=== PATIENT | male | born 1955 | race Two or more races ===

== ENCOUNTER → 2024-06-19 | Outpatient (CLI) | payer OTHER, SELFPAY ==
--- NOTE | 2024-06-19 12:53 | XR_ITS ---
Examination: Knee, right , 3 views Technique: Knee AP, lateral, oblique 3 views Date and time of exam: June 19, 2024 1403 hours INDICATIONS: Patient fell 2 weeks ago with injury to the knee, knee pain. FINDINGS: Moderate osteopenia Moderate narrowing medial joint space No acute fracture No dislocation IMPRESSION: No acute fracture
--- NOTE | 2024-06-19 14:00 | XR_ITS ---
Examination: Ultrasound soft tissue extremity right knee TECHNIQUE: Grayscale sonographic images soft tissue right knee Exam date and time: June 19, 2024 1303 hours INDICATIONS: Palpable lump posterior knee with pain beginning one month ago FINDINGS: Popliteal cyst at the area concern, 2.4 x 1.7 x 2.4 cm IMPRESSION: Popliteal cyst right knee seen with internal derangement of the knee Consider MRI knee without contrast follow-up
== END | disposition home or self-care (01) ==
PROVIDERS: PCP Family Medicine; Referring Provider Family Medicine; Visit Provider Family Medicine
DX: M71.21 Synovial cyst of popliteal space [Baker], right knee (principal); M23.91 Unspecified internal derangement of right knee; S89.91XA Unspecified injury of right lower leg, initial encounter; W19.XXXA Unspecified fall, initial encounter
CPT/HCPCS: 73562; 76882

== ENCOUNTER 2024-08-11 13:15 | Outpatient (AMB) | payer OTHER, SELFPAY ==
[2024-08-11 13:22] VITALS: BP 120/80; PULSE 82; RESP 18; TEMP 36.7; O2SAT 97; BMI 26.3
--- NOTE | 2024-08-11 13:22 | PD.ORTHCLVIS ---
Vital signs 08/11/24 13:22 Height 1.73 m Height Method Measured Weight 78.5 kg Weight Measurement Method Standing Scale BMI 26.3 BP 120/80 Blood Pressure Source Automatic Cuff Blood Pressure Location Right Upper Arm Position Sitting Respiration 18 Pulse 82 Pulse Source Monitor Temp 98.0 F Temp Source Temporal Artery Scan Pulse Oximetry (%) 97 Oxygen Delivery Method Room Air Med/Allergies Allergies & Medications Allergies No Known Drug Allergies Allergy (Verified 08/11/24 13:31) Medication Reconciliation meloxicam 7.5 mg tablet 7.5 mg PO QDAY #45 tabs 08/11/24 [Rx] Exam Exam Breathing is nonlabored. Patient has a normal mood and affect. Bilateral extremities were evaluated and demonstrates sensation intact to light touch. Palpable pedal pulses are present. No significant edema is present. Bilateral hips were examined. The patient has no pain with log roll of the hips. Internal rotation to 30 degrees and external rotation to 30 degrees is painless. Negative FADIR. Left knee was examined today. The left knee is in reasonable alignment. Range of motion from 0-120 degrees. Knee is stable to varus and valgus as well as AP translation with <5mm. Patient has a negative McMurrays. There is no pain with patellofemoral compression and no crepitus noted. The knee is nontender to palpation. The right knee was also examined. The right knee is in varus alignment. Range of motion from 0-115 degrees. Knee is stable to varus and valgus as well as AP translation with <5mm. Patient has a negative McMurrays. There is no pain with patellofemoral compression and no crepitus noted. The knee is tender to palpation medially. Right shoulder was also evaluated. He has a positive Empty can test. Assessment and Plan Problem List (1) Arthritis of knee, right: Status: Acute Plan: Patient is a pleasant 68-year-old male with right knee pain and right knee arthritis. We discussed nonoperative and operative options. I would like to get weightbearing x-rays and we will start with meloxicam. He will do an injection should the pain worsen. We will get knee and shoulder films. Advanced Care Planning Discussion Advance care planning discussed with:: patient Office Procedures GNS Level of Care Nursing/Assessment Patient Status: Initial/New Patient Nursing Assessment/Reassesment: Medication Reconciliation, Update PMH in EMR and Vital Signs Coordination of Care: Complex Care and Chronic Disease 1-5, Education Complex Pt/Fam, Consent,records obtained, informed consent, Lab and Imaging orders, Results/Orders obtained and Staff clarify orders New Patient Charge New Patient Point Assignment: 1109 New Patient Point Charge: DENTAL HYGIENIST Level 3 (4795-2503) MA Intake Visit Data Collection New Patient or Established: Established Patient (seen at [facility] within 3 years) Reason for Visit:: KNEE PAIN Seen by Clinical Staff ONLY (RN/MA): No Verbal consent obtained for Telemed visit?: No Locker Room Attendant Required: No PCP or OBGYN visit in last 3 months: Yes Hx Now: No Do You Feel Safe at Home: Yes Authorities Contacted: N/A Questionairres Past Medical History Past Medical History Have you ever been diagnosed with any of the following: Respiratory Problems Smoking: No Smoking Cessation Counseling: No Smoking Exposure: No Tobacco Use: No Subjective Visit Visit for: new patient and knee Immunization / Flu Flu Vaccine in the Last 12 Months: No Flu Vaccine Exclusion Criteria: No Exclusion Criteria History of Present Illness Chief complaint: Right knee and shoulder pain Date of injury / onset of symptoms: 2 MONTHS Willard? is a pleasant 68-year-old male with 2 months of right knee pain after a fall. He also reports the right shoulder hurts. He has difficulty abducting his shoulder and has difficulty with overhead activities. He has not had any injections or any anti-inflammatories. Personal History Occupation: RETIRED [employer] PMH: BMI BMI Counceling provided: Yes Pain Pain level (0-10): 5 Pain duration: ONLY WITH BENDING KNEE Pain location: inside (medial), outside (lateral) and anterior Pain quality: sharp, dull and aching Pain timing: increases with activity Associated signs & symptoms: numbness, weakness and stiffness Ambulatory data Ambulatory device: none Treatments Improvement with previous injections: No Improvement with PT: No Improvement with NSAIDS: no Review of Systems Review of Systems: All systems negative unless otherwise noted in HPI.
--- NOTE | 2024-08-11 13:36 | XR_ITS ---
Examination: Bilateral AP knees single view Standing PA flexion, standing lateral, axial right knee 3 views TECHNIQUE: Bilateral AP knees standing single view Standing PA knee flexion, standing lateral knee, axial right knee 3 views total 4 views Exam date and time: August 11, 2024 1342 hours INDICATIONS: Patient fell 2 months ago with injury of the right knee, right knee pain. FINDINGS: Moderate osteopenia Right knee moderate tricompartment osteoarthritis No fracture Moderate narrowing medial joint space left knee IMPRESSION: No fracture Right knee moderate tricompartment osteoarthritis
--- NOTE | 2024-08-11 13:36 | XR_ITS ---
Examination: Shoulder,right, 3 views Technique: Shoulder AP internal rotation, AP external rotation, Y view shoulder, 3 views Exam date and time :August 11, 2024 1342 hours INDICATIONS: Patient fell 2 months ago with injury to the right shoulder, right shoulder pain. FINDINGS: Moderate narrowing glenohumeral joint No shoulder fracture or dislocation No acute joint separation IMPRESSION: No shoulder fracture or dislocation
== END 2024-08-11 13:43 | disposition home or self-care (01) ==
PROVIDERS: PCP Family Medicine; Referring Provider Family Medicine; Supervising Provider Orthopaedic Surgery Adult Reconstructive Orthopaedic Surgery; Visit Provider Orthopaedic Surgery Adult Reconstructive Orthopaedic Surgery
DX: M17.11 Unilateral primary osteoarthritis, right knee (principal); M25.561 Pain in right knee; S49.91XD Unspecified injury of right shoulder and upper arm, subsequent encounter; W19.XXXD Unspecified fall, subsequent encounter
CPT/HCPCS: 73030; 73564; 99203; G0463

== ENCOUNTER 2024-09-08 14:21 | Outpatient (AMB) | payer OTHER, SELFPAY ==
--- NOTE | 2024-09-08 14:40 | ORTHONT_ITS ---
Vital signs 09/08/24 14:41 Height 1.73 m Height Method Stated Weight 76.827 kg Weight Measurement Method Standing Scale BMI 25.7 BP 143/82 H Blood Pressure Source Automatic Cuff Blood Pressure Location Right Upper Arm Position Sitting Respiration 18 Pulse 73 Pulse Source Monitor Temp 98.3 F Temp Source Temporal Artery Scan Pulse Oximetry (%) 96 Oxygen Delivery Method Room Air Med/Allergies Allergies & Medications Allergies No Known Drug Allergies Allergy (Verified 09/08/24 14:41) Medication Reconciliation No Known Home Medications 09/08/24 [History Confirmed 09/08/24] Exam Exam Breathing is nonlabored. Patient has a normal mood and affect. Bilateral extremities were evaluated and demonstrates sensation intact to light touch. Palpable pedal pulses are present. No significant edema is present. Bilateral hips were examined. The patient has no pain with log roll of the hips. Internal rotation to 30 degrees and external rotation to 30 degrees is painless. Negative FADIR. Left knee was examined today. The left knee is in reasonable alignment. Range of motion from 0-120 degrees. Knee is stable to varus and valgus as well as AP translation with <5mm. Patient has a negative McMurrays. There is no pain with patellofemoral compression and no crepitus noted. The knee is nontender to palpation. The right knee was also examined. The right knee is in varus alignment. Range of motion from 0-115 degrees. Knee is stable to varus and valgus as well as AP translation with <5mm. Patient has a negative McMurrays. There is no pain with patellofemoral compression and no crepitus noted. The knee is tender to palpation medially. Right shoulder was also evaluated. He has a positive Empty can test. Right shoulder x-rays demonstrate minimal arthritis. Right knee weightbearing x-rays demonstrate mild arthritis as well Assessment and Plan Problem List (1) Rotator cuff tear: Status: Acute Plan: Patient is a 69-year-old male with weak shoulder abduction. He was originally seeing me for his knee but the pain has largely resolved. He has weakness with overhead activities and we are thus sending him to a shoulder surgeon as he is highly likely to have a rotator cuff tear. I told him that I can order an MRI but We can also just send him to a shoulder specialist and go from there Advanced Care Planning Discussion Advance care planning discussed with:: patient Office Procedures GNS Level of Care Nursing/Assessment Patient Status: Established Patient Nursing Assessment/Reassesment: Medication Reconciliation, Update PMH in EMR and Vital Signs Coordination of Care: Complex Care and Chronic Disease 1-5, Education Complex Pt/Fam, Consent,records obtained, informed consent, Results/Orders obtained and Staff clarify orders Established Patient Charge Established Patient Point Assignment: 95 Established Patient Point Charge: EP Level 3 (80-115) MA Intake Visit Data Collection New Patient or Established: Established Patient (seen at [facility] within 3 years) Reason for Visit:: XRAYS FOLLOW UP Seen by Clinical Staff ONLY (RN/MA): No Verbal consent obtained for Telemed visit?: No Water Hauler Required: No PCP or OBGYN visit in last 3 months: Yes Hx Now: No Do You Feel Safe at Home: Yes Authorities Contacted: N/A Questionairres Past Medical History Past Medical History Have you ever been diagnosed with any of the following: Respiratory Problems Smoking: No Smoking Cessation Counseling: No Smoking Exposure: No Tobacco Use: No Subjective Visit Visit for: follow up visit and x-rays Immunization / Flu Flu Vaccine in the Last 12 Months: No Flu Vaccine Exclusion Criteria: No Exclusion Criteria History of Present Illness Chief complaint: XRAY FOLLOW UP Date of injury / onset of symptoms: 2 MONTHS Willard? is a pleasant 68-year-old male with 2 months of right knee pain after a fall. He also reports the right shoulder hurts. He has difficulty abducting his shoulder and has difficulty with overhead activities. He has not had any injections or any anti-inflammatories. He reports difficulty with overhead activity and lifting his shoulder. We discussed that we will send him to a shoulder surgeon as I think he has a rotator cuff tear on examination. Personal History Occupation: RETIRED [employer] PMH: BMI BMI Counceling provided: Yes Pain Pain level (0-10): 0 Pain duration: ONLY WITH BENDING KNEE Pain location: inside (medial), outside (lateral) and anterior Pain quality: sharp, dull and aching Pain timing: increases with activity Associated signs & symptoms: none Ambulatory data Ambulatory device: none Treatments Improvement with previous injections: No Improvement with PT: No Improvement with NSAIDS: no Review of Systems Review of Systems: All systems negative unless otherwise noted in HPI.
[2024-09-08 14:41] VITALS: BP 143/82; PULSE 73; RESP 18; TEMP 36.8; O2SAT 96; BMI 25.7
== END 2024-09-08 14:53 | disposition home or self-care (01) ==
LOC: HODSRG 14:21
PROVIDERS: PCP Family Medicine; Referring Provider Family Medicine; Supervising Provider Orthopaedic Surgery Adult Reconstructive Orthopaedic Surgery; Visit Provider Orthopaedic Surgery Adult Reconstructive Orthopaedic Surgery
DX: M25.511 Pain in right shoulder (principal); M19.011 Primary osteoarthritis, right shoulder; S89.91XD Unspecified injury of right lower leg, subsequent encounter; W19.XXXD Unspecified fall, subsequent encounter
CPT/HCPCS: 99213; G0463

== ENCOUNTER 2024-10-16 09:46 | Emergency (ER) | payer OTHER, SELFPAY ==
[2024-10-16 09:47] VITALS: BMI 25.8
[2024-10-16 09:54] VITALS: BP 173/66; PULSE 67; RESP 17; TEMP 36.7; O2SAT 98
--- NOTE | 2024-10-16 10:02 | XR_ITS ---
Examination: CT abdomen with intravenous contrast CT pelvis with intravenous contrast 2-D coronal reconstructions 2-D sagittal reconstructions Date and time of exam:October 16, 2024 1224 hours INDICATIONS: Right abdominal pain and dysuria nausea today. CTDI: vol (mGy) 7.46 DLP: (mGycm) 467 Technique: Multiple axial sections of the abdomen and pelvis have been obtained. 64 slice high-resolution scanner used. 3 mm axial sections have been obtained, post intravenous injection 60 cc [id number] 2-D sagittal, coronal reconstructions obtained. Low dose protocols were performed. One or more of the following dose reduction techniques were used; automated exposure control, adjustment of the mA and/or KV according to patient size, use of iterative reconstruction technique. Findings: 8mm noncalcified pulmonary nodule right lower lobe No focal liver or splenic lesions Contracted gallbladder No pancreatic mass or peripancreatic edema Normal adrenal glands Mild right hydronephrosis, 2 mm distal right ureterovesical junction calculus Normal appendix No bowel obstruction No diverticulitis Colonic diverticulosis is present Prostate calcifications, transverse prostate dimension 5.3 cm Contracted urinary bladder Fat-containing inguinal hernias Mild lumbar spondylosis IMPRESSION: Mild right hydronephrosis secondary to 2 mm distal right ureterovesical junction calculus Normal appendix
--- NOTE | 2024-10-16 10:04 | PD.EDRME ---
Rapid Medical Screening Exam RME Arrival date/time: 10/16/24 09:46 69-year-old male with no known medical history presents to the emergency room with a chief complaint of right lower quadrant abdominal pain and tenderness x 1 day I have greeted and performed a focused initial assessment of this patient. A comprehensive ED assessment and evaluation of the patient, analysis of all test results, and completion of the medical decision making process will be conducted by additional ED providers. Chief Complaint: Abdominal Pain Vital signs: Vital Signs Temperature 98.1 F 10/16/24 09:54 Pulse Rate 67 10/16/24 09:54 Respiratory Rate 17 10/16/24 09:54 Blood Pressure 173/66 H 10/16/24 09:54 Pulse Oximetry (%) 98 10/16/24 09:54 Oxygen Delivery Method Room Air 10/16/24 09:54 Vital signs reviewed by provider: Yes
[2024-10-16] MEDS: HYDROcodone/APAP 5/325 TABLET 1 TAB PO (10:31)
[2024-10-16 10:34] LABS: Collection Type, Urine Clean Catch
[2024-10-16 10:41] LABS: Basophils # (Auto) 0.1 Thou/mm3 (0.0-0.2); Basophils % (Auto) 1 % (0-2.5); Eosinophils # (Auto) 0.3 Thou/mm3 (0.0-0.5); Eosinophils % (Auto) 2 % (0-10); Hematocrit 41.4 % (41.0-53.0); Immature Granulocytes % (Auto) 1 % (0-0); Immature Granulocytes Auto 0.14 Thou/mm3 (0.00-0.00); Lymphocytes # (Auto) 3.9 Thou/mm3 (1.0-4.8); Lymphocytes % (Auto) 28 % (10-50); Mean Corpuscular HGB Conc 36.2 g/dl (31.0-37.0); Mean Corpuscular Hemoglobin 30.5 pg (25.0-35.0); Mean Corpuscular Volume 84 fL (80-100); Monocytes # (Auto) 0.9 Thou/mm3 (0.0-0.8); Monocytes % (Auto) 6 % (0-12); Neutrophils # (Auto) 8.5 Thou/mm3 (1.8-7.7); Neutrophils % (Auto) 62 % (37-80); Nucleated Red Blood Cell % 0 /100 WBC (0); Platelet Count 285 Thou/mm3 (140-440); Red Blood Count 4.92 Miln/mm3 (4.50-5.90); White Blood Count 13.9 Thou/mm3 (3.8-10.6)
[2024-10-16 10:50] LABS: Bilirubin,Urine Negative (Negative); Blood,Urine 1+ (Negative); Clarity,Urine Clear (Clear/Hazy); Color,Urine Yellow (Lt Yel-Yel); Glucose, Urine Negative (Negative); Ketones,Urine Negative (Negative); Leukocyte Esterase,Urine Positive (Negative); Nitrite,Urine Negative (Negative); Protein,Urine Trace (Neg - Trace); RBC,Urine 12 /hpf (0-3); Specific Gravity,Urine 1.032 (1.001-1.035); Squamous Epithelial Cell,Urine < 1 /hpf (0-5); WBC,Urine 4 /hpf (0-5)
[2024-10-16 11:00] LABS: Alanine Aminotransferase 28 U/L (10-49); Albumin, Serum 4.4 gm/dL (3.4-4.8); Albumin/Globulin Ratio 1.8 (1.2-2.2); Alkaline Phosphatase 85 U/L (46-116); Anion Gap 15 (7-16); Aspartate Amino Transferase 20 U/L (0-34); BUN/Creatinine Ratio 26 Ratio (12-20); Bilirubin,Total 0.8 mg/dL (0.3-1.2); Blood Urea Nitrogen 26 mg/dL (9-23); Carbon Dioxide 23.5 mMol/L (20.0-31.0); Chloride 104 mMol/L (98-107); Estimated Creatinine Clearance 68.4 mL/min (>60); Globulin 2.4 gm/dL (2.3-3.5); Glucose 143 mg/dL (74-106); Lipase 39 U/L (12-53); Osmolality,Calculated 289 (275-295); Potassium 3.8 mMol/L (3.4-5.1); Sodium 142 mMol/L (136-145); Total Protein 6.8 gm/dL (5.7-8.2); eGFR > 60 See Note
--- NOTE | 2024-10-16 11:15 | PC.NURSE ---
PT CALLED FOR CT SCREENING TO BE COMPLETED; NO RESPONSE X1
--- NOTE | 2024-10-16 11:45 | PC.NURSE ---
PT CALLED FOR CT SCREENING TO BE COMPLETED; NO RESPONSE X2
[2024-10-16 16:00] VITALS: BP 132/78; PULSE 68; RESP 18; TEMP 36.7; O2SAT 99
[2024-10-16] MEDS: cefTRIAXone 1,000 MG, LIDOCAINE 1% 20 ML 2.1 ML IM (16:03)
--- NOTE | 2024-11-06 13:17 | EDNOTE_ITS ---
ED General RME/HPI General Chief complaint: Abdominal Pain Stated complaint: RLQ PAIN Time Seen by Provider: 10/16/24 15:53 Source: patient Arrival date/time: 10/16/24 09:46 69-year-old male with no known medical history presents to the emergency room with a chief complaint of right lower quadrant abdominal pain and tenderness x 1 day Mode of arrival: ambulatory Limitations: no limitations RME / HPI RME / HPI narrative: 10/16/24 09:46 69-year-old male with no known medical history presents to the emergency room with a chief complaint of right lower quadrant abdominal pain and tenderness x 1 day I have greeted and performed a focused initial assessment of this patient. A comprehensive ED assessment and evaluation of the patient, analysis of all test results, and completion of the medical decision making process will be conducted by additional ED providers. Related Data Previous Rx's ?Medication ?Instructions ?Recorded hydrocodone 5 mg-acetaminophen 325 1 tab PO BID PRN pa in #10 tabs 10/16/24 mg tablet tamsulosin 0.4 mg capsule (Flomax) 0.4 mg PO QDAY #30 caps 10/16/24 Allergies Allergy/AdvReac Type Severity Reaction Status Date / Time No Known Drug Allergies Allergy Verified 10/16/24 09:49 Review of Systems Review of Systems Systems Reviewed: All systems reviewed, normal except as documented Constitutional Constitutional: Reports system reviewed and no additional complaints, except as documented, Denies fatigue, Denies fever(s), Denies headache(s) and Denies weakness Eyes Eyes: Reports system reviewed and no additional complaints, except as documented, Denies blurry vision and Denies change in vision ENT Ears, Nose, Mouth, and Throat: Reports system reviewed and no additional complaints, except as documented, Denies otalgia, Denies headache(s), Denies nasal congestion, Denies throat swelling and Denies vertigo Cardiovascular Cardiovascular: Reports system reviewed and no additional complaints, except as documented, Denies chest pain, Denies dyspnea and Denies dyspnea on exertion Respiratory Respiratory: Reports system reviewed and no additional complaints, except as documented, Denies chest congestion, Denies cough, Denies dyspnea, Denies dyspnea on exertion and Denies wheezing Gastrointestinal Gastrointestinal: Reports system reviewed and no additional complaints, except as documented, Reports abdominal pain, Reports cramping, Reports nausea and Denies vomiting Genitourinary Genitourinary: Reports system reviewed and no additional complaints, except as documented, Denies dysuria and Denies hematuria Musculoskeletal Musculoskeletal: Reports system reviewed and no additional complaints, except as documented and Denies back pain Integumentary/Breasts Skin/Breast: Reports system reviewed and no additional complaints, except as documented and Denies wounds Neurologic Neurologic: Reports system reviewed and no additional complaints, except as documented, Denies confusion, Denies headache(s), Denies lack of coordination, Denies vertigo and Denies weakness Psychiatric Psychiatric: Reports system reviewed and no additional complaints, except as documented, Denies anxiety, Denies confusion, Denies depression, Denies paranoia, Denies suicidal ideation and Denies tactile hallucinations Endocrine Endocrine: Reports system reviewed and no additional complaints, except as documented and Denies fatigue Hematologic/Lymphatic Hematologic/Lymphatic: Reports system reviewed and no additional complaints, except as documented and Denies lymphadenopathy Allergic/Immunologic Allergic/Immunologic: Reports system reviewed and no additional complaints, except as documented, Denies throat swelling, Denies urticaria and Denies wheezing Past Medical History Past Medical History CARDIAC: Negative Cardiac Disorders RESPIRATORY: Negative Asthma, Smoking, Smoking Cessation Counseling, Smoking Exposure or Tobacco Use GENITOURINARY: Negative Renal Disease ENDOCRINE: Negative Diabetes Mellitus Type 2 HEMATOLOGIC: Negative Sickle Cell Disease Social History SMOKING STATUS: Never smoker ED Exam General Limitations: Present no limitations General appearance: Present alert and in no apparent distress Head Head exam: Present atraumatic Eye Eye exam: Present normal appearance, PERRL and EOMI ENT ENT exam: Present normal exam, normal oropharynx and mucous membranes moist Neck Neck exam: Present normal inspection, full ROM and trachea midline Chest Chest inspection: Present normal inspection and symmetric chest wall rise Respiratory Respiratory exam: Present normal lung sounds bilaterally Cardiovascular Cardiovascular exam: Present regular rate, normal rhythm and normal heart sounds Abdominal Exam Abdominal exam: Present soft, tenderness and normal bowel sounds Abdominal tenderness: Present RLQ and mild Extremities Exam Extremities exam: Present normal inspection and full ROM Back Exam Back exam: Present normal inspection and full ROM Neurological Exam Neurological exam: Present alert, oriented X3 and CN II-XII intact Psychiatric Psychiatric exam: Present normal affect and normal mood Skin Skin exam: Present warm, dry, intact and normal color Course Quality Measures none Orders Category Date Time Status CT Screening NOW Care 10/16/24 10:[address] abdomen pelvis w con Stat Exams 10/16/24 10:02 Completed CBC Stat Lab 10/16/24 10:13 Completed CMP [Comprehensive Metabolic Panel] Stat Lab 10/16/24 10:13 Completed Lipase Stat Lab 10/16/24 10:13 Completed UA [Urinalysis] Stat Lab 10/16/24 10:11 Completed Urine Culture Stat Lab 10/16/24 10:11 Completed HYDROcodone*/APAP 5/325 [[place] 5/325] Med 10/16/24 10:02 Discontinued 1 tab PO X1 ONE cefTRIAXone [Rocephin] 1,000 mg Med 10/16/24 15:53 Discontinued Lidocaine 1% 20 ml [Xylocaine 1% 20 ML] 2.1 ml IM X1 Vital Signs Vital signs: Vital Signs Temperature 98.1 F 10/16/24 09:54 Pulse Rate 67 10/16/24 09:54 Respiratory Rate 17 10/16/24 09:54 Blood Pressure 173/66 H 10/16/24 09:54 Pulse Oximetry (%) 98 10/16/24 09:54 Oxygen Delivery Method Room Air 10/16/24 09:54 Discharge Plan Plan Patient Disposition: HOME (Self Care) Discharge Disposition comment: Stable Prescriptions/Referrals Prescriptions/Med Rec: New hydrocodone-acetaminophen 5-325 mg tablet 1 tab PO BID MDD 10mg PRN (Reason: pain) Qty: 10 0RF tamsulosin [Flomax] 0.4 mg capsule 0.4 mg PO QDAY Qty: 30 0RF Referrals: No Primary/Family,Physician [Primary Care Provider] - In 1 week Problem List Clinical Impression: Kidney stone Patient/Caregiver Discharge Instructions Education Materials: ED Kidney Stone w/ Colic Additional Instructions: Please follow-up with your primary care provider in the next 24 to 48 hours You have a kidney stone in your ureter that you are currently passing. Pain medication was sent to your pharmacy please pick it up and take it as indicated For any evidence of worsening signs or symptoms return to the emergency room immediately Print Language: Slovak Stand Alone Forms: Ella Award Info., Patient Portal Info Letter PA/CARPENTER HELPER Supervising Physician PA/CARPENTER HELPER Supervising Physician: Dr. Sohan OLIVAS Narrative MDM hospital course: 69-year-old male with no known medical history presents to the emergency room with a chief complaint of right lower quadrant abdominal pain and tenderness x 1 day Patient is hemodynamically stable and in no apparent distress. The patient is afebrile not tachycardic and not tachypneic Physical examination shows some 6 out of 10 lower right lower quadrant abdominal tenderness with palpation. A CT of the abdomen and pelvis was completed and was negative for any acute appendicitis. CBC CMP are within normal limits CT of the abdomen and pelvis did find a 2 mm stone in the ureter causing some mild hydronephrosis. The patient does not have a urinary tract infection and no CVA tenderness. Patient was discharged and educated to follow-up with primary care provider in the next 24 to 48 hours and return to the emergency room for any evidence of worsening signs or symptoms Clinical Information Provided by patient Medical Records Reviewed None and [facility] Meds/Rx Considered, not Ordered None Labs/Rad/Tests considered, not Ordered None Chronic Illness/Social Conditions which may negatively complicate care or outcome(s)-explain: None or not applicable EKG EKG not done Lab Interpretation Labs: interpreted by [facility] Imaging interpretation: interpreted by [facility] Radiology reports / interpretation(s): Findings: 8mm noncalcified pulmonary nodule right lower lobe No focal liver or splenic lesions Contracted gallbladder No pancreatic mass or peripancreatic edema Normal adrenal glands Mild right hydronephrosis, 2 mm distal right ureterovesical junction calculus Normal appendix No bowel obstruction No diverticulitis Colonic diverticulosis is present Prostate calcifications, transverse prostate dimension 5.3 cm Contracted urinary bladder Fat-containing inguinal hernias Mild lumbar spondylosis IMPRESSION: Mild right hydronephrosis secondary to 2 mm distal right ureterovesical junction calculus Normal appendix Medication Administration(s) Medication Administration History Discontinued Medications Hydrocodone Bitart/Acetaminophen (Hydrocodone/Apap 5/325 Tablet) 1 tab PO X1 ONE Stop: 10/16/24 10:03 Last Admin: 10/16/24 10:31 Dose: 1 tab Documented By: CARLITOS Ceftriaxone Sodium 1,000 mg/ (Lidocaine HCl 2.1 ml) 0 mg IM X1 ONE Stop: 10/16/24 15:54 Last Admin: 10/16/24 16:03 Dose: 1,000 mg Documented By: CARLITOS Diagnosis Differential diagnosis: Acute appendicitis/renal stone/gastroenteritis Differential dx and/or dx ruled out: Acute appendicitis/gastroenteritis Most likely dx, and/or detailed dx discussion: Renal stone Dispositon Disposition: Discharge Home
== END 2024-10-16 16:00 | disposition home or self-care (01) ==
PROVIDERS: Nurse Practitioner Family; Emergency Provider Emergency Medicine
DX: N13.2 Hydronephrosis with renal and ureteral calculous obstruction (principal)
CPT/HCPCS: 36415; 74177; 80053; 81001; 83690; 85025; 87086; 96374; 99285; A4649; J0696; J3490; Q9967; A9270